=== PATIENT | male | born 1985 | race Two or more races ===

== ENCOUNTER 2019-05-06 10:51 | Emergency (ER) | payer MEDICAID ==
[~2019-05-06] VITALS: Ht 177.8 cm; Wt 99.8 kg
[2019-05-06 11:06] VITALS: BP 138/77
[2019-05-06] MEDS ORDERED: SODIUM CHLORIDE 0.9% 500 ML IV ONE (11:38)
[2019-05-06] MEDS ORDERED: ONDANSETRON HCL 4 MG/2 ML VIAL IV ONE (11:45)
[2019-05-06] MEDS ORDERED: MORPHINE SULFATE 4 MG/ML SYR/VIAL IV ONE (11:45)
[2019-05-06 12:38] LABS: Basophils # (auto) 0 uL; Basophils % (auto) 0.9 % (0.0-2.0); Eosinophils # (auto) 0.3 uL; Eosinophils % (auto) 4.7 % (0.0-7.0); Hematocrit 42.9 % (41.0-53.0); Hemoglobin 14.4 g/dL (13.5-17.5); Lymphocytes # (auto) 1.5 uL; Lymphocytes % (auto) 25.5 % (10.0-50.0); Mean Corpuscular Hemoglobin 28.1 pg (28.0-32.0); Mean Corpuscular Hgb Conc. 33.4 g/dL (32.0-36.0); Monocytes # (auto) 0.5 uL; Neutrophils # (auto) 3.5 uL; Neutrophils % (auto) 59.9 % (37.0-80.0); Nucleated Red Blood Cells % 0.2 %; Platelet Count (auto) 274 10^3/uL (140-450); Red Blood Cells 5.11 10^6/uL (4.5-5.90); Red Cell Distribution Width 14.3 % (11.8-14.3); White Blood Cell 5.8 10^3/uL (4.4-10.8)
[2019-05-06 12:42] LABS: Albumin 3.6 g/dL (3.4-5.0); BUN/Creatinine Ratio 16.3; Calcium 9.2 mg/dL (8.5-10.1); Potassium 4.5 mmol/L (3.5-5.1)
[2019-05-06 12:44] LABS: Bilirubin, Total 0.3 mg/dL (0.2-1.0)
[2019-05-06] MEDS ORDERED: NAFCILLIN SOD 1GM 1 GM in SODIUM CHL 0.9% 50 ML IV ONE (16:00)
== END 2019-05-06 20:16 | disposition home or self-care (01) ==
LOC: ER 10:51
DX: M46.46 Discitis, unspecified, lumbar region (principal)
CPT/HCPCS: 36415; 80053; 85025

== ENCOUNTER 2021-01-29 13:34 | Emergency (ER) | payer MEDICAID, OTHER ==
[~2021-01-29] VITALS: Ht 177.8 cm; Wt 102.1 kg
[2021-01-29 13:45] VITALS: BP 138/85
== END 2021-01-29 15:46 | disposition left against medical advice (07) ==
LOC: ER 13:34
DX: M25.531 Pain in right wrist (principal); M25.532 Pain in left wrist; M54.9 Dorsalgia, unspecified; Z53.21 Procedure and treatment not carried out due to patient leaving prior to being seen by health care provider
CPT/HCPCS: 73100; 73110; 73130

== ENCOUNTER 2021-06-16 18:49 | Emergency (ER) | payer MEDICAID, OTHER ==
[~2021-06-16] VITALS: Ht 175.3 cm; Wt 99.8 kg
[2021-06-16 19:55] VITALS: BP 128/70
[2021-06-16] MEDS ORDERED: PRED20TA2 PO (20:40)
[2021-06-16] MEDS ORDERED: AZITTAB PO (20:40)
== END 2021-06-16 22:16 | disposition home or self-care (01) ==
LOC: ER 18:50
DX: J01.00 Acute maxillary sinusitis, unspecified (principal)

== ENCOUNTER 2021-06-19 15:59 | Emergency (ER) | payer MEDICAID ==
[~2021-06-19] VITALS: Ht 177.8 cm; Wt 99.8 kg
[~2021-06-19 15:59] MED LIST: AZITTAB PO; PRED20TA2 PO
[2021-06-19] MEDS ORDERED: METOCLOPRAMIDE HCL 5MG/ml INJ 2ml VIAL IV ONE (19:00)
[2021-06-19] MEDS ORDERED: KETOROLAC TROMETH 30 MG/ML 1ML VIAL IV ONE (19:00)
[2021-06-19] MEDS ORDERED: SODIUM CHLORIDE 0.9% 1,000 ML IV ONE (19:00)
[2021-06-19] MEDS ORDERED: ACETAMINOPHEN 325 MG TAB PO ONE (19:00)
[2021-06-19 19:28] LABS: Basophils # (auto) 0 10 ^3/uL (0-0.2); Basophils % (auto) 0.4 % (0.0-2.0); Eosinophils # (auto) 0 10 ^3/uL (0-0.8); Hematocrit 45.3 % (41.0-53.0); Hemoglobin 15.3 g/dL (13.5-17.5); Lymphocytes # (auto) 0.6 10 ^3/uL (0.4-5.4); Lymphocytes % (auto) 5.5 % (10.0-50.0); Mean Corpuscular Hgb Conc. 33.8 g/dL (32.0-36.0); Mean Corpuscular Volume 82.8 fL (80.0-100.0); Monocytes # (auto) 0.1 10 ^3/uL (0-1.3); Neutrophils # (auto) 10.9 10 ^3/uL (1.6-8.6); Neutrophils % (auto) 93.1 % (37.0-80.0); Nucleated Red Blood Cells % 0.2 %; Red Blood Cells 5.47 10^6/uL (4.5-5.90); Red Cell Distribution Width 14.6 % (11.8-14.3); White Blood Cell 11.7 10^3/uL (4.4-10.8)
[2021-06-19 19:51] LABS: BUN/Creatinine Ratio 13.1; Calcium 9.5 mg/dL (8.5-10.1); Magnesium 2.3 mg/dL (1.6-2.6); Potassium 4.3 mmol/L (3.5-5.1)
[2021-06-19 21:48] VITALS: BP 127/72
== END 2021-06-19 22:07 | disposition home or self-care (01) ==
LOC: ER 15:59
DX: R51.9 Headache, unspecified (principal); R42 Dizziness and giddiness; R55 Syncope and collapse; Z79.2 Long term (current) use of antibiotics; Z79.899 Other long term (current) drug therapy
CPT/HCPCS: 36415; 70450; 80048; 83735; 85025; 96361; 96374; 96375; 99284; J1885; J2765; J7030

== ENCOUNTER 2021-11-28 18:22 | Emergency (ER) | payer MEDICAID | END 2021-11-28 21:27 | disposition left against medical advice (07) | LOC: ER 18:22 | DX: M54.2 Cervicalgia (principal); M54.9 Dorsalgia, unspecified; Z53.21 Procedure and treatment not carried out due to patient leaving prior to being seen by health care provider ==

== ENCOUNTER 2022-03-17 04:57 | Emergency (ER) | payer MEDICAID ==
[~2022-03-17] VITALS: Ht 177.8 cm; Wt 98.5 kg
[2022-03-17 08:48] VITALS: BP 125/80
[2022-03-17] MEDS ORDERED: KETOROLAC TROMETH 60MG/2ML VIAL IM ONE (09:00)
[2022-03-17] MEDS ORDERED: IBUP800T26 PO (11:18)
[2022-03-17] MEDS ORDERED: ONDA-144 PO (11:18)
== END 2022-03-17 11:24 | disposition home or self-care (01) ==
LOC: ER 04:57
DX: B34.9 Viral infection, unspecified (principal); R51.9 Headache, unspecified; Z20.822 Contact with and (suspected) exposure to COVID-19
CPT/HCPCS: 36415; 70450; 87426; 87804; 96372; 99284; J1885